=== PATIENT | male | born 1985 | race African-American/Black ===

== ENCOUNTER 2016-11-05 17:53 | Emergency (ER) | payer BC ==
[~2016-11-05] VITALS: Ht 180.3 cm; Wt 116.5 kg
[2016-11-05 17:56] VITALS: TEMP 37.1; Ht 180.3 cm; Wt 116.5 kg
[2016-11-05] MEDS ORDERED: ONDANSETRON INJ 2 MG/ML 2 ML VIAL IV STA ×2 (18:11→19:00)
[2016-11-05] MEDS ORDERED: SODIUM CHLORIDE 0.9% 1000ML 1,000 ML IV ONE (18:11)
[2016-11-05] MEDS ORDERED: KETOROLAC TROMETHAMINE 30 MG/ML VIAL IV STA (18:11)
[2016-11-05] MEDS ORDERED: SODIUM CHLORIDE 0.9% 1000ML 1,000 ML IV STA ×2 (18:11→19:02)
--- NOTE | 2016-11-05 18:14 | EMERGENCY ROOM VISIT NOTE ---
History Report prepared by Gabrielle: Chris Ace Under the Supervision of: Dr. Zion Schroeder M.D. First contact with patient: 18:02 Chief Complaint: GI ASSESSMENT Stated Complaint: NAUSEA,DIARRHEA,STOMACH PAIN History of Present Illness The patient is a 31 year old male who presents to the Emergency Room with complaints of intermittent cramping mid-abdominal pain that began last night. He rates his pain a 5/10 in severity. The patient states that the only thing abnormal he ate was a burger yesterday. After this while he was in bed, his pain began. He has also been experiencing diaphoresis, nausea, diarrhea, and back pain. He denies any vomiting. He had four episodes of diarrhea. He denies any abnormal urinary symptoms or abnormal bloody discharges. He also denies any chest pain, shortness of breath, and fevers. He denies any medical problems or surgeries. Source of History: patient Onset: Last night Position: abdomen Symptom Intensity: 5/10 Quality: sharp, other (Cramping) Timing: intermittent Associated Symptoms: + diaphoresis, + nausea, + back pain, + diarrhea, No fevers, No chest pain, No SOB, No vomiting, No melena, No hematochezia, No urinary symptoms Review of Systems See HPI for pertinent positives & negatives. A total of 10 systems reviewed and were otherwise negative. Past Medical & Surgical Medical Problems: (1) No Known Active Medical Problems Old medical records were reviewed. Nurse's notes were reviewed and I agree with. Family History FHx: cancer Social History Smoking Status: Never Smoker Smokeless Tobacco Use: No Alcohol Use: occasionally Drug Use: none Marital Status: single Housing Status: lives alone Occupation Status: employed Current/Historical Medications Scheduled PRN Oxycodone Immediate Rel Tab (Roxicodone Ir), 1-2 TAB PO Q4H PRN for Severe Pain Allergies Coded Allergies: No Known Allergies (Unverified , 11/05/16) Physical Exam Vital Signs Date Time Temp Pulse Resp B/P (MAP) Pulse Ox O2 Delivery O2 Flow Rate FiO2 11/05/16 20:56 80 18 186/100 99 11/05/16 19:12 81 18 182/100 100 Room Air 11/05/16 17:56 37.1 108 20 162/89 99 Room Air Physical Exam General: Well developed well nourished non-ill appearing young male in no acute distress, breathing comfortably on room air. Normal speech HEENT: Normal cephalic atraumatic. Pupils are equal round and reactive to light. Extraocular movements are intact. Oropharynx is pink with moist mucous membranes. No swelling of the mouth lips or tongue. Neck: Supple with a midline trachea. No meningeal signs or stiffness, no JVD or bruits. No Stridor. Chest: Clear to auscultation bilaterally. No wheezes or rhonchi. No increased work of breathing. Heart: regular rate and rhythm. Abdomen: Soft minimally diffusely tender, nondistended without rebound guarding or rigidity. No peritonitis. Extremities: No cyanosis clubbing or edema. No calf tenderness or assymetry Spine/Back. Non tender to palpation. No CVA tenderness Skin: Good turgor without rashes. Neurologic exam: Cranial nerves two through 12 are intact. Motor and sensation are intact and symmetrical throughout. Medical Decision & Procedures ER Provider Diagnostic Interpretation: Radiology results as stated below per my review and radiologist interpretation: ABD/PELVIS IV CONTRAST ONLY CT DOSE: 1283.48 mGy.cm HISTORY: Flank pain eval for diverticulitis, appy, colitis TECHNIQUE: Multiaxial CT images of the abdomen and pelvis were performed following the use of intravenous contrast. COMPARISON STUDY: None. FINDINGS: The lung bases are clear. The liver, spleen, gallbladder, pancreas, kidneys, and adrenal glands are within normal limits. Slight wall thickening in several regions of the small bowel. No evidence for abscess collection or obstruction. Normal appendix. Several scattered sigmoid diverticuli with no evidence of diverticulitis. IMPRESSION: 1. Findings suggesting a mild small bowel enteritis. 2. Mild chronic sigmoid diverticulosis with no evidence for diverticulitis. 3. Normal appendix. The above report was generated using voice recognition software. It may contain grammatical, syntax or spelling errors. Electronically signed by: Papi Walker M.D. 11/05/2016 7:44 PM Dictated Date/Time: 11/05/2016 7:42 PM Laboratory Results 11/05/16 18:05 Red Blood Count 5.77, Mean Corpuscular Volume 84.9, Mean Corpuscular Hemoglobin 28.8, Mean Corpuscular Hemoglobin Concent 33.9, Mean Platelet Volume 9.3, Neutrophils (%) (Auto) 45.7, Lymphocytes (%) (Auto) 41.2, Monocytes (%) (Auto) 12.5, Eosinophils (%) (Auto) 0.4, Basophils (%) (Auto) 0.0, Neutrophils # (Auto ) 2.08, Lymphocytes # (Auto) 1.88, Monocytes # (Auto) 0.57, Eosinophils # (Auto ) 0.02, Basophils # (Auto) 0.00 11/05/16 18:05 Test 11/05/16 18:05 White Blood Count 4.56 K/uL (4.8-10.8) Red Blood Count 5.77 M/uL (4.7-6.1) Hemoglobin 16.6 g/dL (14.0-18.0) Hematocrit 49.0 % (42-52) Mean Corpuscular Volume 84.9 fL (80-100) Mean Corpuscular Hemoglobin 28.8 pg (25-34) Mean Corpuscular Hemoglobin Concent 33.9 g/dl (32-36) Platelet Count 226 K/uL (130-400) Mean Platelet Volume 9.3 fL (7.4-10.4) Neutrophils (%) (Auto) 45.7 % Lymphocytes (%) (Auto) 41.2 % Monocytes (%) (Auto) 12.5 % Eosinophils (%) (Auto) 0.4 % Basophils (%) (Auto) 0.0 % Neutrophils # (Auto) 2.08 K/uL (1.4-6.5) Lymphocytes # (Auto) 1.88 K/uL (1.2-3.4) Monocytes # (Auto) 0.57 K/uL (0.11-0.59) Eosinophils # (Auto) 0.02 K/uL (0-0.5) Basophils # (Auto) 0.00 K/uL (0-0.2) RDW Standard Deviation 41.7 fL (36.4-46.3) RDW Coefficient of Variation 13.6 % (11.5-14.5) Immature Granulocyte % (Auto) 0.2 % Immature Granulocyte # (Auto) 0.01 K/uL (0.00-0.02) Anion Gap 6.0 mmol/L (3-11) Est Creatinine Clear Calc Drug Dose 99.2 ml/min Estimated GFR () 77.0 Estimated GFR (Non- 66.5 BUN/Creatinine Ratio 11.2 (10-20) Calcium Level 9.0 mg/dl (8.5-10.1) Total Bilirubin 0.4 mg/dl (0.2-1) Direct Bilirubin 0.1 mg/dl (0-0.2) Aspartate Amino Transf (AST/SGOT) 13 U/L (15-37) Alanine Aminotransferase (ALT/SGPT) 24 U/L (12-78) Alkaline Phosphatase 60 U/L (45-117) Total Protein 7.9 gm/dl (6.4-8.2) Albumin 4.0 gm/dl (3.4-5.0) Lipase 91 U/L (73-393) Laboratory studies as stated above per my review. Medications Administered Medications (Trade) Dose Ordered Sig/Elliot Route Start Time Stop Time Status Last Admin Dose Admin Sodium Chloride 1,000 ml @ 999 mls/hr Q1H1M STAT IV 11/05/16 18:11 11/05/16 19:11 DC 11/05/16 18:16 999 MLS/HR Sodium Chloride 1,000 ml @ 200 mls/hr Q5H ONCE IV 11/05/16 18:11 11/05/16 23:10 11/05/16 19:09 200 MLS/HR Ketorolac Tromethamine (Toradol Inj) 30 mg NOW STAT IV 11/05/16 18:11 11/05/16 18:13 DC 11/05/16 18:18 30 MG Ondansetron HCl (Zofran Inj) 4 mg NOW STAT IV 11/05/16 18:11 11/05/16 18:13 DC 11/05/16 18:17 4 MG Ondansetron HCl (Zofran Inj) 4 mg NOW STAT IV 11/05/16 19:00 11/05/16 19:02 DC 11/05/16 19:10 4 MG Morphine Sulfate (MoRPHine SULFATE INJ) 4 mg NOW STAT IV 11/05/16 19:00 11/05/16 19:02 DC 11/05/16 19:10 4 MG Sodium Chloride 1,000 ml @ 999 mls/hr Q1H1M STAT IV 11/05/16 19:02 11/05/16 20:02 DC 11/05/16 19:02 999 MLS/HR Oxycodone HCl (Roxicodone Immediate Rel 5MG Home Pack) 1 homepack UD ONCE PO 11/05/16 20:45 11/05/16 20:46 DC 11/05/16 20:45 1 HOMEPACK Ondansetron HCl (ZOFRAN ODT 4MG Home Pack) 1 homepack UD ONCE PO 11/05/16 20:45 11/05/16 20:46 DC 11/05/16 20:45 1 HOMEPACK ED Course 1801: Past medical records reviewed. The patient was evaluated in room B4B, and a complete history and physical examination were performed. 1810: Ordered Zofran Inj 4 mg IV, Toradol Inj 30 mg IV, Sodium Chloride 1000 ml @ 200 mls/hr IV, Sodium Chloride 1000 ml @ 999 mls/hr IV 1854: The patient is having more pain in his abdomen. It is not significantly reproducibly tender. He states that he will take a taxi home. I discussed the risks and benefits of getting a CT scan. We will proceed with getting one. 1899: Ordered Morphine Sulfate 4 mg IV, Zofran Inj 4 mg IV 1901: Ordered Sodium Chloride 1000 ml @ 999 mls/hr IV 2039: The patient's pain has significantly improved. 2044: Ordered Ondansetron HCl 1 homepack PO, Oxycodone HCl 1 homepack PO 2049: Upon reevaluation, the patient is resting. I discussed the results and treatment plan with him. He verbalized agreement of the treatment plan. The patient was discharged home. Medical Decision Differentials include, but are not limited to; gastroenteritis, dehydration, colitis, appendicitis, infection, and electrolyte or metabolic abnormality. Medication Reconciliation: I attest that I have personally reviewed the patient' s current medication list. Blood Pressure Screening: Patient was found to have a slightly elevated blood pressure due to circumstances. I do not believe that the patient requires hypertension monitoring. This patient comes in as described above. He was placed in room before. Here for treatment and evaluation of abdominal cramping and diarrhea and nausea. He looks well on exam and his abdomen is only mildly diffusely tender. He has no peritonitis or masses. IV access was established was hydrated 1 L IV normal saline bolus and 200 mL an hour of IV normal saline. He was given Toradol 30 mg IV and Zofran 4 mg IV. Multiple blood testing was obtained. Stool studies were ordered. He has no white count or fever to suggest significant infection. Upon reassessment he was having more crampy abdominal pain. I did order morphine 4 mg IV and additional Zofran 4 mg IV. He was given additional liter of IV fluid. I did do a CAT scan there is no evidence acute to suggest acute appendicitis. He does have findings consistent with enteritis. He is feeling better. He'll be discharged home. He should use ibuprofen or tyelenol/ Acetaminophen for pain. He was warned not to take more than 2 acetaminophen/ Tylenol every 6 hours and do not take with other medications that contain acetaminophen. For more severe pain, he was given a small prescription for OxyIR 5 mg, one or 2 pills every 46 hours as needed. He was warned that this could make him drowsy and do not take before drinking, driving, working For nausea, he can use Zofran 4 mg every 6 hours if needed. He should follow-up with his regular doctor 1-2 days for recheck and return if: increasing pain, fever or chills, worsening of symptoms, any new problems or concerns. Impression Primary Impression: Diffuse abdominal pain Additional Impression: Enteritis Scribe Attestation The scribe's documentation has been prepared under my direction and personally reviewed by me in its entirety. I confirm that the note above accurately reflects all work, treatment, procedures, and medical decision making performed by me. Departure Information Dispostion Home / Self-Care Prescriptions Oxycodone Immediate Rel Tab (ROXICODONE IR) 5 Mg Tab 1-2 TAB PO Q4H Y for Severe Pain, #10 TAB Prov: Zion Schroeder M.D. 11/05/16 Referrals No Doctor, Assigned (PCP) Forms HOME CARE DOCUMENTATION FORM, IMPORTANT VISIT INFORMATION Patient Instructions My [facility] Additional Instructions Rest. Drink plenty of fluids. Mild diet. For pain may use [id number] Tylenol and/or ibuprofen. Do not exceed the [id number] recommended dosages. Do not take more than 2 Tylenol/acetaminophen pills every 6 hours. Do not take with any other medications that contain acetaminophen/Tylenol For more severe pain, use OxyIR 5 mg, one or 2 pills every 4-6 hours as needed OxyIR may make you drowsy do not take before drinking, driving, working Return if: increasing pain, worsening of symptoms, fever or chills, any new problems or concerns Follow-up with your doctor in 1-2 days for recheck Problem Qualifiers
[2016-11-05 18:21] LABS: COMPLETE YES; EOS % 0.4 %; IG% 0.2 %; LYMPH % 41.2 %; LYMPH ABS # 1.88 K/uL (1.2-3.4); MEAN CELL VOLUME 84.9 fL (80-100); MEAN CORPUSCULAR HEMOGLOBIN 28.8 pg (25-34); MEAN CORPUSCULAR HGB CONC 33.9 g/dl (32-36); MEAN PLATELET VOLUME 9.3 fL (7.4-10.4); MONO % 12.5 %; NEUT % 45.7 %; PLATELET COUNT 226 K/uL (130-400); RED BLOOD COUNT 5.77 M/uL (4.7-6.1); WHITE BLOOD COUNT 4.56 K/uL (4.8-10.8)
[2016-11-05 18:37] LABS: BUN/CREATININE RATIO 11.2 (10-20); CREATININE 1.4 mg/dl (0.60-1.40); POTASSIUM 4.1 mmol/L (3.5-5.1)
[2016-11-05] MEDS ORDERED: MoRPHine SULFATE 4 MG/ML 1 ML CARP\\VIAL IV STA (19:00)
[2016-11-05] MEDS ORDERED: OPTIRAY 320 IV PRN (19:45)
--- NOTE | 2016-11-05 19:46 | DIAGNOSTIC IMAGING REPORT ---
ABD/PELVIS IV CONTRAST ONLY CT DOSE: 1283.48 mGy.cm HISTORY: Flank pain eval for diverticulitis, appy, colitis TECHNIQUE: Multiaxial CT images of the abdomen and pelvis were performed following the use of intravenous contrast. COMPARISON STUDY: None. FINDINGS: The lung bases are clear. The liver, spleen, gallbladder, pancreas, kidneys, and adrenal glands are within normal limits. Slight wall thickening in several regions of the small bowel. No evidence for abscess collection or obstruction. Normal appendix. Several scattered sigmoid diverticuli with no evidence of diverticulitis. IMPRESSION: 1. Findings suggesting a mild small bowel enteritis. 2. Mild chronic sigmoid diverticulosis with no evidence for diverticulitis. 3. Normal appendix. The above report was generated using voice recognition software. It may contain grammatical, syntax or spelling errors. Electronically signed by: Papi Walker M.D. 11/05/2016 7:44 PM Dictated Date/Time: 11/05/2016 7:42 PM
[2016-11-05] MEDS ORDERED: OXYC1TAB3 PO (20:44)
[2016-11-05] MEDS ORDERED: ONDANSETRON HOME PACK 4MG OD TAB PO ONE (20:45)
[2016-11-05] MEDS ORDERED: OXYCODONE IR HOME PACK PO ONE (20:45)
[2016-11-05 20:56] VITALS: BP 186/100; PULSE 80; O2SAT 99
== END 2016-11-05 20:58 | disposition home or self-care (01) ==
LOC: C.EDB 17:56
DX: R10.9 Unspecified abdominal pain (principal); K52.9 Noninfective gastroenteritis and colitis, unspecified

== ENCOUNTER 2016-11-06 21:29 | Emergency (ER) | payer BC ==
[~2016-11-06] VITALS: Ht 180.3 cm; Wt 115.4 kg
[~2016-11-06 21:29] MED LIST: OXYC1TAB3 PO
[2016-11-06 21:39] VITALS: TEMP 36.9; Ht 180.3 cm; Wt 115.4 kg
[2016-11-06] MEDS ORDERED: METOCLOPRAMIDE HCL INJ 5 MG/ML 2 ML VIAL IV STA (21:55)
[2016-11-06] MEDS ORDERED: DiphenhydrAMINE HCL 50 MG/ML VIAL IV STA (21:55)
[2016-11-06] MEDS ORDERED: SODIUM CHLORIDE 0.9% 1000ML 1,000 ML IV STA ×2 (21:55)
[2016-11-06] MEDS ORDERED: DICYCLOMINE HCL 10 MG/ML 2 ML AMP IM ONE (22:00)
[2016-11-06 22:19] LABS: COMPLETE YES; EOS % 0.2 %; HEMATOCRIT 49.6 % (42-52); IG% 0.2 %; LYMPH % 21.5 %; LYMPH ABS # 1.09 K/uL (1.2-3.4); MEAN CELL VOLUME 84.4 fL (80-100); MEAN CORPUSCULAR HEMOGLOBIN 28.7 pg (25-34); MEAN CORPUSCULAR HGB CONC 34.1 g/dl (32-36); MEAN PLATELET VOLUME 9.5 fL (7.4-10.4); MONO % 11.5 %; NEUT % 66.6 %; PLATELET COUNT 207 K/uL (130-400); RED BLOOD COUNT 5.88 M/uL (4.7-6.1); WHITE BLOOD COUNT 5.06 K/uL (4.8-10.8)
[2016-11-06 22:44] LABS: BUN/CREATININE RATIO 6.1 (10-20); CALCIUM 9.1 mg/dl (8.5-10.1); CREATININE 1.4 mg/dl (0.60-1.40); MAGNESIUM 1.9 mg/dl (1.8-2.4); POTASSIUM 3.8 mmol/L (3.5-5.1)
[2016-11-06] MEDS ORDERED: DOCUSATE SODIUM 100 MG/10 ML UDC PO STA (23:25)
[2016-11-06 23:45] VITALS: BP 138/86; PULSE 84; O2SAT 99
[2016-11-06] MEDS ORDERED: ONDANSETRON HOME PACK 4MG OD TAB PO ONE (23:45)
[2016-11-06] MEDS ORDERED: BENTYL HOME PACK 10 MG VIAL PO ONE (23:45)
--- NOTE | 2016-11-07 00:28 | EMERGENCY ROOM VISIT NOTE ---
History First contact with patient: 21:47 Chief Complaint: ABDOMINAL PAIN Stated Complaint: ABD PAIN History of Present Illness The patient is a 31 year old male who presents to the Emergency Room with complaints of ongoing abdominal cramping for the past day was seen here yesterday and had a CT scan. Patient states the nausea and diarrhea since been tapering off. He states the pain meds are not working. Patient also plans of ear fullness. Patient denies chest pain, dyspnea, fever, chills, cough, congestion, urinary symptoms, back pain, cold symptoms. He is tolerating by mouth fluids and food. Review of Systems See HPI for pertinent positives & negatives. A total of 10 systems reviewed and were otherwise negative. Past Medical/Surgical History Medical Problems: (1) No Known Active Medical Problems Family History FHx: cancer Social History Smoking Status: Never Smoker Alcohol Use: occasionally Drug Use: none Marital Status: single Housing Status: lives alone Occupation Status: employed Current/Historical Medications Scheduled PRN Oxycodone Immediate Rel Tab (Roxicodone Ir), 1-2 TAB PO Q4H PRN for Severe Pain Allergies Coded Allergies: No Known Allergies (Unverified , 11/05/16) Physical Exam Vital Signs Date Time Temp Pulse Resp B/P (MAP) Pulse Ox O2 Delivery O2 Flow Rate FiO2 11/06/16 23:45 84 18 138/86 99 Room Air 11/06/16 23:44 Room Air 11/06/16 21:39 36.9 70 18 159/103 98 Room Air Physical Exam VITALS: Vitals are noted on the nurse's note and reviewed by myself. Vital signs hypertensive GENERAL: Pleasant male, in no acute distress, nondiaphoretic, well-developed well-nourished. SKIN: The skin was without rashes, erythema, edema, or bruising. There is no tenting of the skin. Capillary reflex less than 2 seconds. HEAD: Normocephalic atraumatic. EARS: External auditory canals clear, cerumen impaction bilaterally and after cerumen was removed tympanic membranes pearly cheung without erythema or effusion bilaterally. EYES: Pupils equal round and reactive to light and accommodation. Conjunctivae without injection, sclerae without icterus. Extraocular movements intact. NOSE: Patent, turbinates without inflammation or discharge. MOUTH: Mucous membranes moist. Pharynx without erythema or exudate. Uvula midline. Airway patent. Tongue does not deviate. NECK: Supple without nuchal rigidity. No lymphadenopathy. No thyromegaly. Cervical spine is nontender. No JVD. HEART: Regular rate and rhythm without murmurs gallops or rubs. LUNGS: Clear to auscultation bilaterally without wheezes, rales or rhonchi. No dullness to percussion. No retractions or accessory muscle use. ABDOMEN: Positive bowel sounds x 4. Normal tympanic percussion. Soft, nontender, without masses or organomegaly. Caballero sign negative. No guarding or rebound tenderness. No CVA tenderness MUSCULOSKELETAL: No muscle atrophy, erythema, or edema noted. NEURO: Patient was alert and oriented to person place and time. Normal sensation to light and sharp touch. No focal neurological deficits. Medical Decision & Procedures Laboratory Results 11/06/16 22:05 Red Blood Count 5.88, Mean Corpuscular Volume 84.4, Mean Corpuscular Hemoglobin 28.7, Mean Corpuscular Hemoglobin Concent 34.1, Mean Platelet Volume 9.5, Neutrophils (%) (Auto) 66.6, Lymphocytes (%) (Auto) 21.5, Monocytes (%) (Auto) 11.5, Eosinophils (%) (Auto) 0.2, Basophils (%) (Auto) 0.0, Neutrophils # (Auto ) 3.37, Lymphocytes # (Auto) 1.09, Monocytes # (Auto) 0.58, Eosinophils # (Auto ) 0.01, Basophils # (Auto) 0.00 11/06/16 22:05 Test 11/06/16 22:05 White Blood Count 5.06 K/uL (4.8-10.8) Red Blood Count 5.88 M/uL (4.7-6.1) Hemoglobin 16.9 g/dL (14.0-18.0) Hematocrit 49.6 % (42-52) Mean Corpuscular Volume 84.4 fL (80-100) Mean Corpuscular Hemoglobin 28.7 pg (25-34) Mean Corpuscular Hemoglobin Concent 34.1 g/dl (32-36) Platelet Count 207 K/uL (130-400) Mean Platelet Volume 9.5 fL (7.4-10.4) Neutrophils (%) (Auto) 66.6 % Lymphocytes (%) (Auto) 21.5 % Monocytes (%) (Auto) 11.5 % Eosinophils (%) (Auto) 0.2 % Basophils (%) (Auto) 0.0 % Neutrophils # (Auto) 3.37 K/uL (1.4-6.5) Lymphocytes # (Auto) 1.09 K/uL (1.2-3.4) Monocytes # (Auto) 0.58 K/uL (0.11-0.59) Eosinophils # (Auto) 0.01 K/uL (0-0.5) Basophils # (Auto) 0.00 K/uL (0-0.2) RDW Standard Deviation 41.6 fL (36.4-46.3) RDW Coefficient of Variation 13.5 % (11.5-14.5) Immature Granulocyte % (Auto) 0.2 % Immature Granulocyte # (Auto) 0.01 K/uL (0.00-0.02) Anion Gap 6.0 mmol/L (3-11) Est Creatinine Clear Calc Drug Dose 98.7 ml/min Estimated GFR () 77.0 Estimated GFR (Non- 66.5 BUN/Creatinine Ratio 6.1 (10-20) Calcium Level 9.1 mg/dl (8.5-10.1) Magnesium Level 1.9 mg/dl (1.8-2.4) Total Bilirubin 0.4 mg/dl (0.2-1) Direct Bilirubin 0.1 mg/dl (0-0.2) Aspartate Amino Transf (AST/SGOT) 11 U/L (15-37) Alanine Aminotransferase (ALT/SGPT) 23 U/L (12-78) Alkaline Phosphatase 52 U/L (45-117) Total Protein 7.9 gm/dl (6.4-8.2) Albumin 4.0 gm/dl (3.4-5.0) Lipase 75 U/L (73-393) Medications Administered Medications (Trade) Dose Ordered Sig/Elliot Route Start Time Stop Time Status Last Admin Dose Admin Dicyclomine HCl (Bentyl Inj) 20 mg NOW ONCE IM 11/06/16 22:00 11/06/16 22:01 DC 11/06/16 22:00 20 MG Metoclopramide HCl (Reglan Inj) 10 mg NOW STAT IV 11/06/16 21:55 11/06/16 21:57 DC 11/06/16 22:16 10 MG Diphenhydramine HCl (Benadryl Inj) 12.5 mg NOW STAT IV 11/06/16 21:55 11/06/16 21:57 DC 11/06/16 22:16 12.5 MG Sodium Chloride 1,000 ml @ 999 mls/hr Q1H1M STAT IV 11/06/16 21:55 11/06/16 22:55 DC 11/06/16 22:18 999 MLS/HR Sodium Chloride 1,000 ml @ 125 mls/hr Q8H STAT IV 11/06/16 21:55 11/07/16 05:54 11/06/16 22:18 125 MLS/HR Docusate Sodium (coLACE SYRUP) 100 mg NOW STAT PO 11/06/16 23:25 11/06/16 23:26 DC 11/06/16 23:25 100 MG Dicyclomine HCl (Dicyclomine HCl 10MG Home Pack) 1 ea UD ONCE PO 11/06/16 23:45 11/06/16 23:46 DC 11/07/16 00:10 1 EA Ondansetron HCl (ZOFRAN ODT 4MG Home Pack) 1 homepack UD ONCE PO 11/06/16 23:45 11/06/16 23:46 DC 11/07/16 00:10 1 HOMEPACK ED Course Prior records/ancillary studies reviewed. Triage Nursing notes reviewed. The patient's history was concerning for abdominal pain. Differential diagnosis: Etiologies such as appendicitis, diverticulitis, PUD, biliary pathology, UTI, pancreatitis, obstruction, mesenteric ischemia, aortic pathology, infections, inflammatory bowel disease, renal colic, as well as others were entertained. Physical examination findings: As above. ER treatment provided: carina hager ear irrigation by nursing On reassessment the patient felt better. Diagnostics interpreted by me: The labs revealed no leukocytosis, no worrisome electrolyte abnormality Imaging studies: ABD/PELVIS IV CONTRAST ONLY CT DOSE: 1283.48 mGy.cm HISTORY: Flank pain eval for diverticulitis, appy, colitis TECHNIQUE: Multiaxial CT images of the abdomen and pelvis were performed following the use of intravenous contrast. COMPARISON STUDY: None. FINDINGS: The lung bases are clear. The liver, spleen, gallbladder, pancreas, kidneys, and adrenal glands are within normal limits. Slight wall thickening in several regions of the small bowel. No evidence for abscess collection or obstruction. Normal appendix. Several scattered sigmoid diverticuli with no evidence of diverticulitis. IMPRESSION: 1. Findings suggesting a mild small bowel enteritis. 2. Mild chronic sigmoid diverticulosis with no evidence for diverticulitis. 3. Normal appendix. The above report was generated using voice recognition software. It may contain grammatical, syntax or spelling errors. Electronically signed by: Papi Walker M.D. Exam and hx seem consistent with abdominal pain from enteritis. Patient had nausea and diarrhea that is now tapering off. He requested his ears to be irrigated and this is done by nursing. Patient did not have acute abdomen on exam. He is well-appearing. He was advised take Bentyl for his symptoms and to follow-up with family care in a few days or here in the ER sooner for abdominal pain, fevers, vomiting, worsening signs or symptoms or as needed. By the evaluation outlined above emergent etiologies such as appendicitis, diverticulitis, PUD, biliary pathology, UTI, pancreatitis, obstruction, mesenteric ischemia, aortic pathology, infections, inflammatory bowel disease, renal colic, as well as others were deemed relatively unlikely. The pt informed about the findings as listed above. All questions were answered and pleased with the treatment. Return instructions were outlined and the patient was discharged in stable condition. Outpatient prescription management: bentyl Referral: The patient was referred back to their primary care physician for follow-up in 2 to 3 days for a recheck of the current condition. case reviewed with my Attending Medical Decision as above Impression Primary Impression: Enteritis Additional Impression: Impacted cerumen of both ears Departure Information Dispostion Home / Self-Care Condition GOOD Referrals No Doctor, Assigned (PCP) Patient Instructions My [facility] Additional Instructions DO NOT drive, drink alcohol, operate machinery, or perform dangerous activities today. You were given medications in the ER that can affect your ability to safely function or operate a vehicle. Bentyl 20 m tablet every 8 hours as needed for abdominal cramping. Ibuprofen(Motrin, Advil) may be used for fever or pain. Use 600mg every six hours as needed. Take with food. Avoid using more than 2400mg in a 24 hour period. Do not use 2400mg per day for more than three consecutive days without physician direction. Prolonged inappropriate use can lead to stomach upset or ulcers. (AND/OR) Acetaminophen(Tylenol) may be used for fever or pain. Use 1000mg every six hours as needed. Avoid using more than 3000mg in a 24 hour period. Zofran 4mg: Take one every six hours as needed for nausea. Avoid alcohol, operating machinery or dangerous equipment, working on ladders or roofs, DRIVING , or situations where being under the influence may be dangerous. Rest and drink plenty of fluids as tolerated. Slow sips of water or sports drinks are recommended instead of large amounts all at once. Continue current medications. Once your stomach is settled start with a clear liquid diet (jello, soup broth, etc.) and then advance as tolerated. You should avoid full, heavy meals for about 24 hrs from the time your symptoms resolved. Return to the ER immediately for worsening or persistent abdominal pain, vomiting, fevers, chest pains, difficulty breathing, black or bloody stools, worsening of your condition, or as needed. Follow up with your primary physician in 2-3 days for a recheck of your current condition. Problem Qualifiers
[2016-11-07] MEDS ORDERED: DICY20TA35 PO (00:29)
[2016-11-07] MEDS ORDERED: ONDA4TAB46 PO (22:00)
[2016-11-07] MEDS ORDERED: NAPR1TAB9 PO (22:00)
== END 2016-11-07 00:45 | disposition home or self-care (01) ==
LOC: C.EDB 21:30 → C.EDC 11-07 00:45
DX: K52.9 Noninfective gastroenteritis and colitis, unspecified (principal); H61.23 Impacted cerumen, bilateral

== ENCOUNTER 2016-11-07 21:42 | Emergency (ER) | payer BC ==
[~2016-11-07] VITALS: Ht 180.3 cm; Wt 116.2 kg
[~2016-11-07 21:42] MED LIST changes: +DICY20TA35 PO
[2016-11-07 21:49] VITALS: TEMP 37.5; Ht 180.3 cm; Wt 116.2 kg
[2016-11-07] MEDS ORDERED: SODIUM CHLORIDE 0.9% 1000ML 1,000 ML IV STA ×2 (21:58)
[2016-11-07] MEDS ORDERED: ONDA4TAB46 PO (22:00)
[2016-11-07] MEDS ORDERED: NAPR1TAB9 PO (22:00)
[2016-11-07] MEDS ORDERED: DICYCLOMINE HCL 10 MG/ML 2 ML AMP IM ONE (22:00)
[2016-11-07 22:32] VITALS: O2SAT 98
[2016-11-07 22:41] LABS: COMPLETE YES; HEMATOCRIT 52.3 % (42-52); IG% 0.2 %; LYMPH ABS # 1.17 K/uL (1.2-3.4); MEAN CELL VOLUME 84.5 fL (80-100); MEAN CORPUSCULAR HEMOGLOBIN 28.4 pg (25-34); MEAN CORPUSCULAR HGB CONC 33.7 g/dl (32-36); MEAN PLATELET VOLUME 9.4 fL (7.4-10.4); MONO % 7.1 %; NEUT % 66.7 %; PLATELET COUNT 209 K/uL (130-400); RED BLOOD COUNT 6.19 M/uL (4.7-6.1)
[2016-11-07] MEDS ORDERED: MoRPHine SULFATE 4 MG/ML 1 ML CARP\\VIAL IV STA (22:56)
[2016-11-07] MEDS ORDERED: ONDANSETRON INJ 2 MG/ML 2 ML VIAL IV STA (22:56)
[2016-11-07] MEDS ORDERED: OPTIRAY 320 IV PRN (23:00)
[2016-11-07 23:07] LABS: BUN/CREATININE RATIO 6.1 (10-20); CALCIUM 9.2 mg/dl (8.5-10.1); CREATININE 1.5 mg/dl (0.60-1.40); MAGNESIUM 1.8 mg/dl (1.8-2.4); POTASSIUM 3.7 mmol/L (3.5-5.1)
[2016-11-07 23:15] LABS: THYROID STIMULATING HORMONE 1.84 uIu/ml (0.300-4.500)
[2016-11-08] MEDS ORDERED: MoRPHine SULFATE 4 MG/ML 1 ML CARP\\VIAL IV STA (00:44)
[2016-11-08 01:09] LABS: URINE APPEARANCE CLEAR (CLEAR); URINE BILIRUBIN NEG (NEG); URINE COLOR YELLOW; URINE NITRITE NEG (NEG); URINE PH 8.5 (4.5-7.5); URINE SPECIFIC GRAVITY 1.042 (1.000-1.030); UROBILINOGEN NEG (NEG); ZZUR CULT IF INDIC CLEAN CATCH NO
[2016-11-08 01:10] LABS: MANUAL MICROSCOPIC REQUIRED? NO; REVIEW REQ? NO
[2016-11-08 01:28] LABS: BENZODIAZEPINE, URINE NEG (NEG); COCAINE,URINE NEG (NEG); PHENCYCLIDINE, URINE NEG (NEG)
[2016-11-08 02:08] VITALS: BP 127/74; PULSE 77; O2SAT 98
--- NOTE | 2016-11-08 02:15 | History and Physical ---
History & Physical Date & Time of Service: Nov 08, 2016 at 01:59 Chief Complaint: Stomach Pain, Cramps, Tingly Sensation In Fingers Primary Care Physician: No Doctor, Assigned History of Present Illness Source: patient 31 y/o M who denies any active medical issues. Pt has been to the ER a total of 3 x this wk with complaints of abdominal pain. He has had a total of [address] scans. The initial revealed a mild small bowel enteritis which was not present on the follow-up. His pain is most pronounced in his LLQ. He ad diarrhea with the onset of symptoms 4 days ago and not since. He has been occasionally nauseous. He has not had vomiting or fevers. He describes the pain as a cramping sensation. He also states that he felt like he was having paresthesias today which prompted him to return to the ER. He has been able to tolerate a soft diet. The pt had been prescribed Bentyl, Zofran and Percocet. He has complied with the Bentyl and Zofran but states that he took Aleve instead of the Percocet as he wished to avoid narcotic use. He is comfortable following IVF, antiemetics and a dose of Morphine. Past Medical/Surgical History Denies any medical or surgical history Family History FHx: cancer Father had prostate CA - Both parents alive and well Social History Does not smoke, drinks beer on occasion - works in IT for [employer] Smoking Status: Never Smoker Drug Use: none Marital Status: single Occupational Status: employed Allergies Coded Allergies: No Known Allergies (Unverified , 11/07/16) Home Medications Scheduled Dicyclomine Hcl (Bentyl), 20 MG PO Q8 Scheduled PRN Naproxen (Aleve), 220 MG PO Q12 PRN for Pain Ondansetron Hcl (Zofran), 4 MG PO Q6 PRN for Nausea Oxycodone Immediate Rel Tab (Roxicodone Ir), 1-2 TAB PO Q4H PRN for Severe Pain Review of Systems Constitutional: No fever, No chills, No sweats Eyes: No worsening of vision ENT: No hearing loss, No unusual epistaxis, No nasal symptoms Respiratory: No cough, No sputum, No wheezing Cardiovascular: No chest pain, No orthopnea, No PND Abdomen: + pain, + nausea, + diarrhea (4 days prior), No vomiting Musculoskeletal: No joint pain, No muscle pain Genitourinary - Male: No hematuria, No dysuria Neurologic: + problem reported (Paresthesias as reported), No memory loss, No paralysis, No weakness Psychiatric: No depression symptoms Endocrine: No fatigue Hematologic / Lymphatic: No abnormal bleeding/bruising Integumentary: No rash Allergic / Immunologic: No environmental allergies Physical Exam Vital Signs Date Time Temp Pulse Resp B/P (MAP) Pulse Ox O2 Delivery O2 Flow Rate FiO2 11/07/16 23:47 69 26 98 11/07/16 23:42 65 21 96 11/07/16 23:31 150/99 11/07/16 23:17 156/97 11/07/16 23:12 70 18 100 11/07/16 22:52 100 11/07/16 22:32 98 Room Air 11/07/16 21:49 37.5 78 18 158/88 100 Room Air General Appearance: WD/WN, no apparent distress, + pertinent finding (Pleasant , overweight, oung male in no distress) Head: normocephalic, atraumatic Eyes: normal inspection, EOMI ENT: normal ENT inspection, pharynx normal Neck: supple, no JVD Respiratory/Chest: chest non-tender, lungs clear, normal breath sounds, no respiratory distress, no accessory muscle use Cardiovascular: regular rate, rhythm, no edema, no gallop Abdomen/GI: normal bowel sounds, non tender, soft, + pertinent finding (Bowel sounds are normal - there is no tenderness or distention - exam follows administration of Morphine in the ER) Back: normal inspection, no CVA tenderness Extremities/Musculoskelatal: normal inspection, no calf tenderness, normal capillary refill, no pedal edema, normal range of motion Neurologic/Psych: assistant designer II-XII nml as tested, no motor/sensory deficits, alert, oriented x 3 Skin: normal color, warm/dry, no rash Diagnostics Laboratory Results Results Past 24 Hours Test 11/07/16 22:30 11/07/16 22:37 11/08/16 00:55 Range/Units White Blood Count 4.50 4.8-10.8 K/uL Red Blood Count 6.19 4.7-6.1 M/uL Hemoglobin 17.6 14.0-18.0 g/dL Hematocrit 52.3 42-52 % Mean Corpuscular Volume 84.5 80-100 fL Mean Corpuscular Hemoglobin 28.4 25-34 pg Mean Corpuscular Hemoglobin Concent 33.7 32-36 g/dl Platelet Count 209 130-400 K/uL Mean Platelet Volume 9.4 7.4-10.4 fL Neutrophils (%) (Auto) 66.7 % Lymphocytes (%) (Auto) 26.0 % Monocytes (%) (Auto) 7.1 % Eosinophils (%) (Auto) 0.0 % Basophils (%) (Auto) 0.0 % Neutrophils # (Auto) 3.00 1.4-6.5 K/uL Lymphocytes # (Auto) 1.17 1.2-3.4 K/uL Monocytes # (Auto) 0.32 0.11-0.59 K/uL Eosinophils # (Auto) 0.00 0-0.5 K/uL Basophils # (Auto) 0.00 0-0.2 K/uL RDW Standard Deviation 41.1 36.4-46.3 fL RDW Coefficient of Variation 13.5 11.5-14.5 % Immature Granulocyte % (Auto) 0.2 % Immature Granulocyte # (Auto) 0.01 0.00-0.02 K/uL Sodium Level 138 136-145 mmol/L Potassium Level 3.7 3.5-5.1 mmol/L Chloride Level 104 98-107 mmol/L Carbon Dioxide Level 27 21-32 mmol/L Anion Gap 7.0 3-11 mmol/L Blood Urea Nitrogen 9 7-18 mg/dl Creatinine 1.50 0.60-1.40 mg/dl Est Creatinine Clear Calc Drug Dose 92.5 ml/min Estimated GFR () 70.9 Estimated GFR (Non- 61.2 BUN/Creatinine Ratio 6.1 10-20 Random Glucose 98 70-99 mg/dl Calcium Level 9.2 8.5-10.1 mg/dl Magnesium Level 1.8 1.8-2.4 mg/dl Total Bilirubin 0.7 0.2-1 mg/dl Direct Bilirubin 0.2 0-0.2 mg/dl Aspartate Amino Transf (AST/SGOT) 18 15-37 U/L Alanine Aminotransferase (ALT/SGPT) 23 12-78 U/L Alkaline Phosphatase 42 45-117 U/L Total Protein 8.2 6.4-8.2 gm/dl Albumin 4.3 3.4-5.0 gm/dl Lipase 69 73-393 U/L Thyroid Stimulating Hormone (TSH) 1.840 0.300-4.500 uIu/ml Bedside Lactic Acid Venous 1.38 0.90-1.70 mmol/L Urine Color YELLOW Urine Appearance CLEAR CLEAR Urine pH 8.5 4.5-7.5 Urine Specific [place] 1.042 1.000-1.030 Urine Protein NEG NEG Urine Glucose (UA) NEG NEG Urine Ketones TRACE NEG Urine Occult Blood NEG NEG Urine Nitrite NEG NEG Urine Bilirubin NEG NEG Urine Urobilinogen NEG NEG Urine Leukocyte Esterase NEG NEG Urine Opiates Screen POS NEG Urine Methadone, Qualitative NEG NEG Urine Barbiturates NEG NEG Urine Phencyclidine (PCP) Level NEG NEG Ur Amphetamine/Methamphetamine NEG NEG MDMA (Ecstasy) Screen NEG NEG Urine Benzodiazepines Screen NEG NEG Urine Cocaine Metabolite NEG NEG Urine Marijuana (THC) NEG NEG Diagnostic Radiology CT abdomen 1. Findings suggesting a mild small bowel enteritis. 2. Mild chronic sigmoid diverticulosis with no evidence for diverticulitis. 3. Normal appendix. Impression Assessment and Plan 31 y/o M who denies any active medical issues. Pt has been to the ER a total of 3 x this wk with complaints of abdominal pain. He has had a total of [address] scans. The initial revealed a mild small bowel enteritis which was not present on the follow-up. His pain is most pronounced in his LLQ. He ad diarrhea with the onset of symptoms 4 days ago and not since. He has been occasionally nauseous. He has not had vomiting or fevers. He describes the pain as a cramping sensation. He also states that he felt like he was having paresthesias today which prompted him to return to the ER. He has been able to tolerate a soft diet. The pt had been prescribed Bentyl, Zofran and Percocet. He has complied with the Bentyl and Zofran but states that he took Aleve instead of the Percocet as he wished to avoid narcotic use. He is comfortable following IVF, antiemetics and a dose of Morphine. Following discussion with the ER attending the pt will be sent home with supportive measures. He has been instructed to take narcotics if needed in the short term. He has been told to return to the ER if he exhibits any fevers, diarrhea or cannot tolerate PO intake or maintain adequate hydration or if his symptoms do not resolve or improve The above was discussed in detail with the pt and ER attending - total time for this outpatient consult including review of labs, meds, imaging - 31 min.
--- NOTE | 2016-11-08 02:53 | EMERGENCY ROOM VISIT NOTE ---
History First contact with patient: 21:57 Chief Complaint: ABDOMINAL PAIN Stated Complaint: STOMACH PAIN, CRAMPS, TINGLY SENSATION IN FINGERS Nursing Triage Summary: This is the pts third visit to the ED for llq abdominal pain. Pt stated that he now has tingling in his hands bilaterally. Pt states that there is a stabbing pain in his abdonmen. Pt states he has nausea and has vomited. History of Present Illness The patient is a 31 year old male who presents to the Emergency Room with complaints of ongoing abdominal cramping for the past day was seen here yesterday and had a CT scan. Patient states the nausea and diarrhea since been tapering off. He states the pain meds are not working. Patient states the pain is getting progressively worse. He tried the Bentyl and Motrin but the pain persists. 8 out of 10. Described as cramping. Nothing makes it better or worse. It does not radiate. Left lower quadrant. Patient denies chest pain , dyspnea, fever, chills, cough, congestion, urinary symptoms, back pain, cold symptoms. He is tolerating by mouth fluids and food. Review of Systems See HPI for pertinent positives & negatives. A total of 10 systems reviewed and were otherwise negative. Past Medical/Surgical History Medical Problems: (1) No Known Active Medical Problems Family History FHx: cancer Social History Smoking Status: Never Smoker Alcohol Use: occasionally Drug Use: none Marital Status: single Housing Status: lives alone Occupation Status: employed Current/Historical Medications Scheduled Dicyclomine Hcl (Bentyl), 20 MG PO Q8 Scheduled PRN Naproxen (Aleve), 220 MG PO Q12 PRN for Pain Ondansetron Hcl (Zofran), 4 MG PO Q6 PRN for Nausea Oxycodone Immediate Rel Tab (Roxicodone Ir), 1-2 TAB PO Q4H PRN for Severe Pain Allergies Coded Allergies: No Known Allergies (Unverified , 11/07/16) Physical Exam Vital Signs Date Time Temp Pulse Resp B/P (MAP) Pulse Ox O2 Delivery O2 Flow Rate FiO2 11/08/16 02:08 77 16 127/74 98 11/07/16 23:47 69 26 98 11/07/16 23:42 65 21 96 11/07/16 23:31 150/99 11/07/16 23:17 156/97 11/07/16 23:12 70 18 100 11/07/16 22:52 100 11/07/16 22:32 98 Room Air 11/07/16 21:49 37.5 78 18 158/88 100 Room Air Pain Rating (0-10): 0 Physical Exam VITALS: Vitals are noted on the nurse's note and reviewed by myself. Vital signs stable. GENERAL: Positive bowel smiling and interactive, in no acute distress, nondiaphoretic, well-developed well-nourished. SKIN: The skin was without rashes, erythema, edema, or bruising. There is no tenting of the skin. Capillary reflex less than 2 seconds. HEAD: Normocephalic atraumatic. EARS: External auditory canals clear, tympanic membranes pearly cheung without erythema or effusion bilaterally. EYES: Pupils equal round and reactive to light and accommodation. Conjunctivae without injection, sclerae without icterus. Extraocular movements intact. NOSE: Patent, turbinates without inflammation or discharge. MOUTH: Mucous membranes moist. Pharynx without erythema or exudate. Uvula midline. Airway patent. Tongue does not deviate. NECK: Supple without nuchal rigidity. No lymphadenopathy. No thyromegaly. Cervical spine is nontender. No JVD. HEART: Regular rate and rhythm without murmurs gallops or rubs. LUNGS: Clear to auscultation bilaterally without wheezes, rales or rhonchi. No dullness to percussion. No retractions or accessory muscle use. ABDOMEN: Positive bowel sounds x 4. Normal tympanic percussion. Soft, tender to palpation left lower quadrant, no CVA tenderness without masses or organomegaly. Caballero sign negative. No guarding or rebound tenderness. MUSCULOSKELETAL: No muscle atrophy, erythema, or edema noted. NEURO: Patient was alert and oriented to person place and time. Normal sensation to light and sharp touch. No focal neurological deficits. Medical Decision & Procedures Laboratory Results 11/07/16 22:30 Red Blood Count 6.19, Mean Corpuscular Volume 84.5, Mean Corpuscular Hemoglobin 28.4, Mean Corpuscular Hemoglobin Concent 33.7, Mean Platelet Volume 9.4, Neutrophils (%) (Auto) 66.7, Lymphocytes (%) (Auto) 26.0, Monocytes (%) (Auto) 7.1, Eosinophils (%) (Auto) 0.0, Basophils (%) (Auto) 0.0, Neutrophils # (Auto) 3.00, Lymphocytes # (Auto) 1.17, Monocytes # (Auto) 0.32, Eosinophils # (Auto) 0.00, Basophils # (Auto) 0.00 11/07/16 22:30 Test 11/07/16 22:30 11/07/16 22:37 11/08/16 00:55 White Blood Count 4.50 K/uL (4.8-10.8) Red Blood Count 6.19 M/uL (4.7-6.1) Hemoglobin 17.6 g/dL (14.0-18.0) Hematocrit 52.3 % (42-52) Mean Corpuscular Volume 84.5 fL (80-100) Mean Corpuscular Hemoglobin 28.4 pg (25-34) Mean Corpuscular Hemoglobin Concent 33.7 g/dl (32-36) Platelet Count 209 K/uL (130-400) Mean Platelet Volume 9.4 fL (7.4-10.4) Neutrophils (%) (Auto) 66.7 % Lymphocytes (%) (Auto) 26.0 % Monocytes (%) (Auto) 7.1 % Eosinophils (%) (Auto) 0.0 % Basophils (%) (Auto) 0.0 % Neutrophils # (Auto) 3.00 K/uL (1.4-6.5) Lymphocytes # (Auto) 1.17 K/uL (1.2-3.4) Monocytes # (Auto) 0.32 K/uL (0.11-0.59) Eosinophils # (Auto) 0.00 K/uL (0-0.5) Basophils # (Auto) 0.00 K/uL (0-0.2) RDW Standard Deviation 41.1 fL (36.4-46.3) RDW Coefficient of Variation 13.5 % (11.5-14.5) Immature Granulocyte % (Auto) 0.2 % Immature Granulocyte # (Auto) 0.01 K/uL (0.00-0.02) Anion Gap 7.0 mmol/L (3-11) Est Creatinine Clear Calc Drug Dose 92.5 ml/min Estimated GFR () 70.9 Estimated GFR (Non- 61.2 BUN/Creatinine Ratio 6.1 (10-20) Calcium Level 9.2 mg/dl (8.5-10.1) Magnesium Level 1.8 mg/dl (1.8-2.4) Total Bilirubin 0.7 mg/dl (0.2-1) Direct Bilirubin 0.2 mg/dl (0-0.2) Aspartate Amino Transf (AST/SGOT) 18 U/L (15-37) Alanine Aminotransferase (ALT/SGPT) 23 U/L (12-78) Alkaline Phosphatase 42 U/L (45-117) Total Protein 8.2 gm/dl (6.4-8.2) Albumin 4.3 gm/dl (3.4-5.0) Lipase 69 U/L (73-393) Thyroid Stimulating Hormone (TSH) 1.840 uIu/ml (0.300-4.500) Bedside Lactic Acid Venous 1.38 mmol/L (0.90-1.70) Urine Color YELLOW Urine Appearance CLEAR (CLEAR) Urine pH 8.5 (4.5-7.5) Urine Specific [place] 1.042 (1.000-1.030) Urine Protein NEG (NEG) Urine Glucose (UA) NEG (NEG) Urine Ketones TRACE (NEG) Urine Occult Blood NEG (NEG) Urine Nitrite NEG (NEG) Urine Bilirubin NEG (NEG) Urine Urobilinogen NEG (NEG) Urine Leukocyte Esterase NEG (NEG) Urine Opiates Screen POS (NEG) Urine Methadone, Qualitative NEG (NEG) Urine Barbiturates NEG (NEG) Urine Phencyclidine (PCP) Level NEG (NEG) Ur Amphetamine/Methamphetamine NEG (NEG) MDMA (Ecstasy) Screen NEG (NEG) Urine Benzodiazepines Screen NEG (NEG) Urine Cocaine Metabolite NEG (NEG) Urine Marijuana (THC) NEG (NEG) Medications Administered Medications (Trade) Dose Ordered Sig/Elliot Route Start Time Stop Time Status Last Admin Dose Admin Dicyclomine HCl (Bentyl Inj) 20 mg NOW ONCE IM 11/07/16 22:00 11/07/16 22:01 DC 11/07/16 22:43 20 MG Sodium Chloride 1,000 ml @ 999 mls/hr Q1H1M STAT IV 11/07/16 21:58 11/07/16 22:58 DC 11/07/16 22:43 999 MLS/HR Sodium Chloride 1,000 ml @ 125 mls/hr Q8H STAT IV 11/07/16 21:58 11/08/16 02:16 DC 11/07/16 23:16 125 MLS/HR Morphine Sulfate (MoRPHine SULFATE INJ) 4 mg NOW STAT IV 11/07/16 22:56 11/07/16 22:57 DC 11/07/16 23:16 4 MG Ondansetron HCl (Zofran Inj) 4 mg NOW STAT IV 11/07/16 22:56 11/07/16 22:57 DC 11/07/16 23:15 4 MG Morphine Sulfate (MoRPHine SULFATE INJ) 4 mg NOW STAT IV 11/08/16 00:44 11/08/16 00:45 DC 11/08/16 01:17 4 MG ED Course Prior records/ancillary studies reviewed. Triage Nursing notes reviewed. The patient's history was concerning for abdominal pain. Differential diagnosis: Etiologies such as appendicitis, diverticulitis, PUD, biliary pathology, UTI, pancreatitis, obstruction, mesenteric ischemia, aortic pathology, infections, inflammatory bowel disease, renal colic, as well as others were entertained. Physical examination findings: As above. ER treatment provided: Morphine, Zofran, IV fluids, Bentyl On reassessment the patient felt better. Diagnostics interpreted by me: The labs revealed no worrisome leukocytosis or electrolyte abnormality. Negative urine Imaging studies: Negative CT Consultation: A consultation was placed with the hospitalist, Dr. Georges. The case was discussed and diagnostics were reviewed. The patient was evaluated in the ER for further treatment. He states the patient states be discharged home. Exam and history seem consistent with enteritis. Patient was seen in this ER 3 times now for the same complaint. I did have medicine evaluate for possible admission. They state the patient is safe to be discharged home. Patient is agreeable to this. He is strongly encouraged to follow tomorrow with family care and take his medicines as directed. He is advised to return to the ER immediately for abdominal pain, fevers, vomiting, worsening signs or symptoms or as needed. Patient unremarkable workup as above. Negative lactic acid. By the evaluation outlined above emergent etiologies such as appendicitis, diverticulitis, PUD, biliary pathology, UTI, pancreatitis, obstruction, mesenteric ischemia, aortic pathology, infections, inflammatory bowel disease, renal colic, as well as others were deemed relatively unlikely. The pt informed about the findings as listed above. All questions were answered and pleased with the treatment. Return instructions were outlined and the patient was discharged in stable condition. Case reviewed with my attending Referral: The patient was referred back to their primary care physician for follow-up in 2 to 3 days for a recheck of the current condition. Medical Decision As above [place] Drug Monitoring Program Search Results: patient reviewed within database, no issues identified Impression Primary Impression: Enteritis Departure Information Dispostion Home / Self-Care Condition [employer]IR Forms Call Back Authorization, HOME CARE DOCUMENTATION FORM, Work Instructions, Return To Work: 2 days IMPORTANT VISIT INFORMATION Patient Instructions Abdominal Pain - [facility], My [facility] Additional Instructions DO NOT drive, drink alcohol, operate machinery, or perform dangerous activities today. You were given medications in the ER that can affect your ability to safely function or operate a vehicle. Ibuprofen(Motrin, Advil) may be used for fever or pain. Use 600mg every six hours as needed. Take with food. Avoid using more than 2400mg in a 24 hour period. Do not use 2400mg per day for more than three consecutive days without physician direction. Prolonged inappropriate use can lead to stomach upset or ulcers. (AND/OR) Acetaminophen(Tylenol) may be used for fever or pain. Use 1000mg every six hours as needed. Avoid using more than 3000mg in a 24 hour period. Zofran 4mg: Take one every six hours as needed for nausea. Avoid alcohol, operating machinery or dangerous equipment, working on ladders or roofs, DRIVING , or situations where being under the influence may be dangerous. Rest and drink plenty of fluids as tolerated. Slow sips of water or sports drinks are recommended instead of large amounts all at once. Continue current medications. Once your stomach is settled start with a clear liquid diet (jello, soup broth, etc.) and then advance as tolerated. You should avoid full, heavy meals for about 24 hrs from the time your symptoms resolved. Return to the ER immediately for worsening or persistent abdominal pain, vomiting, fevers, chest pains, difficulty breathing, black or bloody stools, worsening of your condition, or as needed. Follow up with your primary physician in 24 hours for a recheck of your current condition. Work Instructions Return To Work: 2 days
--- NOTE | 2016-11-08 07:09 | DIAGNOSTIC IMAGING REPORT ---
ABD/PELVIS IV CONTRAST ONLY CLINICAL HISTORY: 31 years-old Male presenting with severe llq pain. TECHNIQUE: Multidetector CT of the abdomen and pelvis was performed after the administration of intravenous contrast. IV contrast: 94 mL of Optiray 320. COMPARISON: 11/05/2016. CT DOSE: The estimated cumulative dose is 1207.85 mGy.cm. FINDINGS: [employer] Operator topogram: Unremarkable. Lung bases: Lung bases clear. No pericardial or pleural effusion. Liver: Normal morphology. Hypoattenuation along the fissure for the ligamentum teres likely perfusional variation or focal fat. No liver lesion. Patent hepatic vasculature. Biliary: No intrahepatic or extrahepatic biliary ductal dilatation. Normal gallbladder. Pancreas: Normal. Spleen: Normal. Adrenal glands: Normal. Kidneys and ureters: Normal. No hydronephrosis. Gastrointestinal tract: Few diverticula at the junction of the descending and sigmoid colon. Normal appendix. Interval clearance of inspissated material within the previously noted mildly distended small bowel. No current small bowel distention. Mild apparent wall thickening of the terminal ileum (series 2 image 62). Peritoneal cavity: No free fluid or intraperitoneal gas. Bladder: Normal. Pelvic organs: Normal. Vasculature: Aorta and IVC patent and normal in caliber. Lymph nodes: No enlarged lymph nodes in the abdomen or pelvis. Abdominal wall: Normal. Musculoskeletal: Normal. IMPRESSION: 1. Interval decrease in inspissated material and proximal small bowel distention, likely resolving into right us. Residual mild apparent wall thickening of the terminal ileum. 2. Few diverticula at the junction of the descending and sigmoid colon. No evidence of diverticulitis. No inflammatory change within the left lower quadrant. Electronically signed by: José Miguel Carl M.D. 11/08/2016 7:08 AM Dictated Date/Time: 11/08/2016 7:02 AM
[2016-11-10 14:18] LABS: COD UR NEGATIVE NG/ML (CUTOFF=50); HYDROCOD UR NEGATIVE NG/ML (CUTOFF=50); HYDROMOR UR NEGATIVE NG/ML (CUTOFF=50); MORPHINE UR 1010 NG/ML (CUTOFF=50); NORHYDROCODONE CONF UR NEGATIVE NG/ML (CUTOFF=50); OXYMORPH UR NEGATIVE NG/ML (CUTOFF=50)
== END 2016-11-08 02:12 | disposition home or self-care (01) ==
LOC: C.EDB 21:43 → C.EDC 11-08 02:12
DX: K52.9 Noninfective gastroenteritis and colitis, unspecified (principal)